=== PATIENT | male | born 1960 | race Asian ===

== ENCOUNTER 2019-03-30 21:30 | Inpatient (IN) | payer MEDICARE, OTHER ==
[~2019-03-30] VITALS: Ht 167.6 cm; Wt 74.5 kg
[2019-03-31] VITALS (20 sets, daily range): BP systolic 131–179; BP diastolic 64–89; PULSE 60–87; RESP 18–22; Ht 167.6 cm; Wt 74.5 kg
[2019-03-31] MEDS ORDERED: ATOR40TA68 PO (00:42)
[2019-03-31] MEDS ORDERED: ASPI-817 PO (00:42)
[2019-03-31] MEDS ORDERED: AMLO-147 PO (00:42)
[2019-03-31] MEDS ORDERED: CHOL400T10 PO (00:42)
[2019-03-31] MEDS ORDERED: INSU100I33 SC ×2 (00:42→00:45)
[2019-03-31] MEDS ORDERED: NEPH PO (00:42)
[2019-03-31] MEDS ORDERED: MULT-896 PO (00:42)
[2019-03-31] MEDS ORDERED: LOSA100T15 PO (00:42)
[2019-03-31] MEDS ORDERED: METO-448 PO (00:42)
[2019-03-31] MEDS ORDERED: INSU100I12 SQ ×2 (00:43→00:50)
--- NOTE | 2019-03-31 00:44 | HP ---
Date/Time of Note Date/Time of Note DATE: 03/31/19 TIME: 00:44 Assessment/Plan VTE Prophylaxis SCD applied (from Nsg): Yes Pharmacological prophylaxis: NA/contraindicated Pharm contraindication: low risk/ambulating Lines/Catheters IV Catheter Type (from Nrsg): Saline Lock Assessment/Plan Hospital Course This is a 58-year-old male being admitted to the telemetry floor for: #1 uremia: BUN and creatinine 149/4.6 respectively. Do not have a previous baseline renal function. Patient also does have metabolic acidosis. All secondary to noncompliance of his end-stage renal disease. Nephrology Dr. Pena has been consulted by the ED for emergent dialysis in the a.m. Potassium at the current time is within normal values. #2 chest pressure: Currently no signs of any volume overload. Will trend cardiac enzymes x3, EKG is nonischemic. Check an echocardiogram. #3 end-stage renal disease: Was previously on dialysis Thursday. Nephrology has been consulted. Resume home renal meds #4 hypertension: Resume amlodipine, metoprolol, PRN hydralazine. We will hold losartan at the current time until seen by nephrology #5 diabetes mellitus: Resume home insulin regimen, insulin sliding scale we will check hemoglobin A1c #6 metabolic acidosis: Likely secondary to underlying end-stage renal disease. Resume renal medications. Further management as per nephrology. #7 normocytic anemia: Likely secondary to anemia of renal disease further management as per nephro #8 DVT GI prophylaxis: SCDs, no GI prophylaxis indicated Further treatment strategy will be implemented as per the clinical course. Result Diagram: 03/30/19 2211 03/30/19 2211 Results 24hrs Laboratory Tests Test 03/30/19 22:10 03/30/19 22:11 Bedside Glucose 196 White Blood Count 6.3 Red Blood Count 3.02 L Hemoglobin 9.3 L Hematocrit 27.6 L Mean Corpuscular Volume 91.4 Mean Corpuscular Hemoglobin 30.8 Mean Corpuscular Hemoglobin Concent 33.7 Red Cell Distribution Width 12.0 Platelet Count 134 L Mean Platelet Volume 10.6 H Immature Granulocytes % 0.300 Neutrophils % 63.2 Lymphocytes % 22.3 Monocytes % 11.0 Eosinophils % 2.9 Basophils % 0.3 Nucleated Red Blood Cells % 0.0 Immature Granulocytes # 0.020 Neutrophils # 4.0 Lymphocytes # 1.4 Monocytes # 0.7 Eosinophils # 0.2 Basophils # 0.0 Nucleated Red Blood Cells # 0.0 Sodium Level 144 Potassium Level 4.5 Chloride Level 106 Carbon Dioxide Level 22 Anion Gap 16 H Blood Urea Nitrogen 149 H Creatinine 12.61 H Est Glomerular Filtrat Rate mL/min 4 L Glucose Level 187 Calcium Level 7.2 L Total Bilirubin 0.3 Direct Bilirubin 0.00 Indirect Bilirubin 0.3 Aspartate Amino Transf (AST/SGOT) 18 Alanine Aminotransferase (ALT/SGPT) 28 Alkaline Phosphatase 59 Troponin I < 0.012 B-Type Natriuretic Peptide 876 H Total Protein 7.4 Albumin 4.5 Globulin 2.90 Albumin/Globulin Ratio 1.55 HPI/ROS Admit Date/Time Admit Date/Time Hx of Present Illness Chief complaint: Sent in by PCP for abnormal labs This is a 58-year-old very pleasant male who presented to the emergency department after going to his PCP and was found to have abnormal labs. Patient reports that he followed up with his primary care doctor and was told to come to the ER immediately due to abnormal lab results. Patient has been dealing with some generalized body aches and tightness. He also reports weakness and decreased appetite over the last week or so. He reports that he has decreased taste sensation. He states that he has not been to dialysis in approximately 1 month. He states that he did not feel well so he did not go. His beef breaker is Dr. Patrick Pena. Patient is still able to urinate. Patient also reports on and off chest pressure during the last 2 weeks. Currently denies any chest pain. Allergies: NKDA Medications: See JAN ROS Const: As per HPI Eyes : No pain discharge or redness or change in visual acuity ENT: No pain, sore throat, congestion, congestion, dysphagia or discharge Respiratory: No shortness of breath, cough, sputum, wheezing, or pleuritic pain Cardiovascular: No chest pain, palpitation, PND, or edema GI : no change in appetite, abdominal pain, nausea, vomiting, diarrhea, constipation, or change in the color his stool Genitourinary: No dysuria, hematuria, flank pain , discharge or CVA tenderness Musculoskeletal: As per HPI Skin: No rash, bruising or hives Neuro: No headache, dizziness, syncope, seizure, focal weakness Endocrine: No polyuria, polydipsia, temperature intolerance Psych: No hallucination, depression, anxiety or suicidal ideation PMH/Family/Social Past Medical History End-stage renal disease on dialysis Thursday, hypertension, insulin-dependent diabetes mellitus Medications Current Medications IV Flush (NS 3 ml) 3 ml PER PROTOCOL IV ; Start 03/31/19 at 01:00; Status UNV Acetaminophen (Tylenol Tab) 650 mg Q6H PRN PO .PAIN 1-3 OR TEMP; Start 03/31/19 at 01:00; Status UNV Docusate Sodium (Colace) 100 mg Q12H PRN PO .CONSTIPATION; Start 03/31/19 at 01:00; Status UNV Bisacodyl (Dulcolax) 5 mg DAILY PRN PO .CONSTIPATION; Start 03/31/19 at 01:00; Status UNV Furosemide (Lasix) 80 mg ONCE ONCE IV ; Start 03/31/19 at 01:00; Stop 03/31/19 at 01:01; Status UNV Coded Allergies: No Known Allergy (Unverified , 03/30/19) Past Surgical History Appendectomy, left AV fistula Family History Significant Family History: no pertinent family hx Social History Alcohol Use: none Smoking Status: Never smoker Drug Use: none Exam/Review of Systems Vital Signs Vitals Vital Signs Date Temp Pulse Resp B/P (MAP) Pulse Ox O2 O2 Flow FiO2 Time Delivery Rate 03/30/19 65 18 163/85 100 Room Air 23:01 (111) 03/30/19 97.2 21:39 Exam Exam General: Patient is a pleasant male currently lying in bed in no acute distress HEENT: Atraumatic, normocephalic. The pupils are equal, round and reactive. Ext raocular motor are intact Neck: Supple with full range of motion. No rigidity or meningismus Chest: Nontender Lungs: Clear to auscultation bilaterally no crackles rales or wheezing Heart: Normal S1-S2, Regular rhythm and rate. No overt murmurs appreciated on auscultation Abdomen: Soft , nontender, nondistended , bowel sounds are present. No guarding no rebound tenderness , No masses or organomegaly. No costovertebral temporal angle mass Extremities: Normal to inspection, no edema no cyanosis Skin: Left upper extremity AV fistula Neurologic: Normal mental status, speech normal, cranial nerves II through XII are intact, motor and sensory are intact, no focal weakness Additional Comments PROCEDURE: XR Chest. CLINICAL INDICATION: Chest pain. TECHNIQUE: Portable AP semi erect views of the chest were obtained, 2 images sent to the PACS for review. COMPARISON: None. FINDINGS: The cardiomediastinal silhouette is within normal limits. The lungs are clear. There is no evidence for pleural effusion, pneumothorax or pulmonary vascular congestion. The osseous structures are intact with no evidence for acute abnormality. Atherosclerotic calcification of the aortic arch is present. Artifact external to the patient on the first image is removed on the second image RPTAT:HJJR IMPRESSION: 1. No evidence for acute intrathoracic pathology. 2. Aortic atherosclerosis is present. Physician Mikaela Date Time Electronically viewed and signed by Physician Mikaela on 03/31/2019 00:10 JR/ CC: GARIMA SHIELDS [id number] EDNA WHATLEY March 31, 2019 00:44
[2019-03-31] MEDS ORDERED: INSU100C SQ (00:48)
[2019-03-31] MEDS ORDERED: FUROSEMIDE 40 MG INJ IV ONE (01:00)
[2019-03-31] MEDS ORDERED: BISACODYL (EC) 5 MG TAB PO PRN (01:00)
[2019-03-31] MEDS ORDERED: NACL 0.9% 3 ML SYG IV SCH (01:00)
[2019-03-31] MEDS ORDERED: DOCUSATE SODIUM 100 MG CAP PO PRN (01:00)
[2019-03-31] MEDS ORDERED: ACETAMINOPHEN 325 MG TAB PO PRN (01:00)
--- NOTE | 2019-03-31 01:14 | ERD ---
ER Documentation Chief Complaint Chief Complaint STOPPED HEMO DIALYSIS 1 MONTH AGO, PCP WANTS STAT LABS HPI This is a very pleasant 58-year-old male comes in after he stopped hemodialysis 1 month ago. Patient states he felt terrible the past week. By terrible, patient states that he feels short of breath and lightheaded. Denies any teri chest pain. Denies any other current issues. ROS All systems reviewed and are negative except as per history of present illness. Medications Home Meds Reported Medications Insulin Lispro (Humalog Kwikpen U-100) 100 Unit/1 Ml Insuln.pen, 45 UNIT SQ AC A, EA 03/31/19 Insulin Glargine,Hum.rec.anlog (Basaglar Kwikpen U-100) 100 Unit/1 Ml Insuln.pen, 15 UNIT SC QHS, EA 03/31/19 Multivit-Min/FA/Lycopen/Lutein (Centrum Silver Men Tablet) 1 Each Tablet, 1 EACH PO DAILY, TAB 03/31/19 Cholecalciferol* (Vitamin D*) 400 Unit Tablet, 400 UNIT PO DAILY, TAB 03/31/19 Aspirin* (Aspirin* EC) 81 Mg Tablet.dr, 81 MG PO DAILY for 90 Days, #90 03/31/19 Losartan Potassium* (Losartan Potassium*) 100 Mg Tablet, 100 MG PO DAILY for 60 Days, #60 03/31/19 Atorvastatin* (Atorvastatin*) 40 Mg Tablet, 40 MG PO QHS for 60 Days, #60 03/31/19 Amlodipine Besylate* (Amlodipine Besylate*) 10 Mg Tablet, 10 MG PO DAILY for 60 Days, #60 03/31/19 Metoprolol Tartrate* (Lopressor*) 25 Mg Tab, 25 MG PO Q12 TK 1 T PO Q 12H 03/31/19 Multivit/Ca Carb/B Cmplx/Fa* (Kae-Alin*) 1 Tab Tab, 1 TAB PO DAILY for 30 Days, #30 03/31/19 Discontinued Reported Medications Insulin Lispro (Humalog) 100 Unit/1 Ml Cartridge, 15 UNIT SQ AC B, EA 03/31/19 Insulin Lispro (Humalog Kwikpen U-100) 100 Unit/1 Ml Insuln.pen, 15 UNIT SQ AC C, EA 03/31/19 Insulin Glargine,Hum.rec.anlog (Basaglar Kwikpen U-100) 100 Unit/1 Ml Insuln .pen, 45 UNIT SC QHS, EA 03/31/19 Allergies Allergies: Coded Allergies: No Known Allergy (Unverified , 03/30/19) PMhx/Soc History of Surgery: No Anesthesia Reaction: No Hx Neurological Disorder: No Hx Respiratory Disorders: No Hx Cardiac Disorders: Yes (ESRD, HD (,,)) Hx Psychiatric Problems: No Hx Alcohol Use: Yes (SOCIALLY) Hx Substance Use: No Hx Tobacco Use: No Smoking Status: Never smoker Physical Exam Vitals Vital Signs Date Temp Pulse Resp B/P (MAP) Pulse Ox O2 O2 Flow FiO2 Time Delivery Rate 03/31/19 69 18 160/89 100 Room Air 00:48 (112) 03/30/19 65 18 163/85 100 Room Air 23:01 (111) 03/30/19 83 18 157/78 100 Room Air 22:41 (104) 03/30/19 97.2 66 18 189/86 99 21:39 (120) Physical Exam Const: No acute distress Head: Atraumatic Eyes: Normal Conjunctiva ENT: Normal External Ears, Nose and Mouth. Neck: Full range of motion. No meningismus. Resp: Clear to auscultation bilaterally Cardio: Regular rate and rhythm, no murmurs Abd: Soft, non tender, non distended. Normal bowel sounds Skin: No petechiae or rashes Back: No midline or flank tenderness Ext: No cyanosis, or edema Neur: Awake and alert Psych: Normal Mood and Affect Result Diagram: 03/30/19 2211 03/30/19 2211 Results 24 hrs Laboratory Tests Test 03/30/19 22:10 03/30/19 22:11 Bedside Glucose 196 mg/dL White Blood Count 6.3 10^3/ul Red Blood Count 3.02 10^6/ul Hemoglobin 9.3 g/dl Hematocrit 27.6 % Mean Corpuscular Volume 91.4 fl Mean Corpuscular Hemoglobin 30.8 pg Mean Corpuscular Hemoglobin Concent 33.7 g/dl Red Cell Distribution Width 12.0 % Platelet Count 134 10^3/UL Mean Platelet Volume 10.6 fl Immature Granulocytes % 0.300 % Neutrophils % 63.2 % Lymphocytes % 22.3 % Monocytes % 11.0 % Eosinophils % 2.9 % Basophils % 0.3 % Nucleated Red Blood Cells % 0.0 /100WBC Immature Granulocytes # 0.020 10^3/ul Neutrophils # 4.0 10^3/ul Lymphocytes # 1.4 10^3/ul Monocytes # 0.7 10^3/ul Eosinophils # 0.2 10^3/ul Basophils # 0.0 10^3/ul Nucleated Red Blood Cells # 0.0 10^3/ul Sodium Level 144 mmol/L Potassium Level 4.5 mmol/L Chloride Level 106 mmol/L Carbon Dioxide Level 22 mmol/L Anion Gap 16 Blood Urea Nitrogen 149 mg/dl Creatinine 12.61 mg/dl Est Glomerular Filtrat Rate mL/min 4 mL/min Glucose Level 187 mg/dl Calcium Level 7.2 mg/dl Total Bilirubin 0.3 mg/dl Direct Bilirubin 0.00 mg/dl Indirect Bilirubin 0.3 mg/dl Aspartate Amino Transf (AST/SGOT) 18 IU/L Alanine Aminotransferase (ALT/SGPT) 28 IU/L Alkaline Phosphatase 59 IU/L Troponin I < 0.012 ng/ml B-Type Natriuretic Peptide 876 PG/ML Total Protein 7.4 g/dl Albumin 4.5 g/dl Globulin 2.90 g/dl Albumin/Globulin Ratio 1.55 Current Medications Medications Dose Sig/Phil Start Time Status Last (Trade) Ordered Route PRN Stop Time Admin Dose Reason Admin IV Flush 3 ml PER 03/31/19 (NS 3 ml) PROTOCOL IV 01:00 650 mg Q6H PRN 03/31/19 Acetaminophen PO .PAIN 1-3 01:00 (Tylenol OR TEMP Tab) Docusate 100 mg Q12H PRN 03/31/19 Sodium PO 01:00 (Colace) .CONSTIPATION Bisacodyl 5 mg DAILY PRN 03/31/19 (Dulcolax) PO 01:00 .CONSTIPATION Furosemide 80 mg ONCE ONCE 03/31/19 DC 03/31/19 (Lasix) IV 01:00 00:54 03/31/19 01:01 Procedures/MDM EKG: Rate/Rhythm: [Normal Sinus Rhythm] QRS, ST, T-waves: [No changes consistent w/ acute ischemia] Impression: [No evidence of ischemia or arrhythmia] Chest X-ray 1V Interpreted by me: Soft Tissue: No acute abn ormalities Bones: No acute abnormalities Mediastinum/Cardiac Silhouette/Lungs: [No acute abnormalities] Medical decision making: This is a 58-year-old male fluid overload secondary to missed hemodialysis. Patient will be admitted to hospitalist. Dr. Pena consulted for nephrology as he knows the patient well. Departure Diagnosis: Primary Impression: Fluid overload Hypervolemia type: unspecified Qualified Codes: E87.70 - Fluid overload, unspecified Condition: Fair GARIMA SHIELDS March 31, 2019 01:14
[2019-03-31] MEDS ORDERED: INSULIN LISPRO 45 UNIT SQ SCH (06:30)
[2019-03-31] MEDS: INSULIN ASPART [NOVOLOG] 3 ML PEN SC SCH ×5 (07:59→23:24)
[2019-03-31] MEDS ORDERED: INSULIN ASPART [NOVOLOG] 3 ML PEN SC SCH (08:00)
--- NOTE | 2019-03-31 08:21 | CONS ---
DATE OF ADMISSION: 03/30/2019 DATE OF CONSULTATION: 03/31/2019 TYPE OF CONSULTATION: Nephrology. REASON FOR CONSULTATION: End-stage renal disease. PHYSICIAN REQUESTING CONSULT: Dr. Whatley. HISTORY OF PRESENT ILLNESS: This is a 58-year-old male with a past medical history of end-stage jolly l disease, access AV fistula. The patient's primary optician manager is Dr. Patrick Pena. The patient 's last hemodialysis was approximately 1 month ago. The patient presents to [facility] with abnormal labs. The patient states that he was seen by primary care physician, had laborato ry data, which showed marked abnormality and was told to come to the emergency room for evaluation. The patient has been dealing with generalized body aches, some chest tightness. He reports decrease in appetite. The patient denies any hemoptysis, hematemesis, or hematochezia. In terms of patient's renal history, the patient is on dialysis, last dialysis as stated above was 1 month ago. The patient reports no exact reasons why he stopped going. PAST MEDICAL HISTORY: History of end-stage renal disease, history of anemia, history of mineral bone disorder, history of diabetes. PAST SURGICAL HISTORY: Status post AV fistula placement. FAMILY HISTORY: No family history of kidney disease. SOCIAL HISTORY: He does not drink, smoke or do drugs. MEDICATIONS: The patient's medications have been reviewed. REVIEW OF SYSTEMS: A 14-point review of systems was conducted. Pertinent positives stated in HPI, o therwise negative. PHYSICAL EXAMINATION: VITAL SIGNS: Blood pressure is 160/82, respirations 19, pulse 69, temperature 98.2. HEENT: Head is normocephalic. NECK: Supple. HEART: Regular rate. LUNGS: Show diminished breath sounds at the base. ABDOMEN: Soft, nontender to palpation without rebound or guarding. EXTREMITIES: Negative for clubbing, cyanosis. Positive edema. DERMATOLOGIC: No rashes. MUSCULOSKELETAL: No joint effusion. NEUROLOGIC: No focal deficits. LABORATORY DATA: Reviewed. IMAGING STUDIES: Reviewed. ASSESSMENT AND PLAN: This is a 58-year-old male who presents with: 1. End-stage renal disease. The patient's last hemodialysis was approximately 1 month ago. The pat ient has access AV fistula. Plan is for daily dialysis for solute clearance and volume removal. The patient will be given mannitol with hemodialysis to help prevent dialysis disequilibrium syndrome. We will monitor closely. 2. Uremia secondary to end-stage renal disease. We will continue daily dialysis. Monitor closely. 3. Anemia. Continue to monitor hemoglobin and hematocrit levels. We will check iron panel. We benjie l give Epogen as needed. 4. Mineral bone disorder. Monitor calcium and phosphorus levels. The patient is hyperphosphatemic. We will resume phosphate binders. 5. Hypernatremia. Encourage free water intake. 6. Chest tightness, pressure. Etiology is unclear. The patient is being ruled out for acute mcintosh ry syndrome. Check serial troponins. Check a 2D echo. 7. Diabetes. Continue current insulin regimen. Thank you, Dr. Whatley, for this interesting consult. It will be a pleasure to follow the patient wi th you throughout the hospital course. Dictated By: GERALD URIBE DO NR/NTS Conf#: [id number] DID#: [id number] CC: EDNA WHATLEY MD;*EndCC*
[2019-03-31] MEDS: CHOLECALCIFEROL 400 UNITS TAB PO SCH (08:40)
[2019-03-31] MEDS: MULTIVIT/CA CARB/B CMPLX/FA TAB PO SCH (08:40)
[2019-03-31] MEDS: MULTIVITAMINS/MINERALS TAB PO SCH (08:40)
[2019-03-31] MEDS: ASPIRIN (EC) 81 MG TAB PO SCH (08:40)
[2019-03-31] MEDS: METOPROLOL 25 MG TAB PO SCH ×2 (08:41→23:06)
[2019-03-31] MEDS: AMLODIPINE 10 MG TAB PO SCH (08:41)
[2019-03-31] MEDS ORDERED: GLUCOSE GEL 15 GRAM TUBE PO PRN ×2 (09:00)
[2019-03-31] MEDS ORDERED: DEXTROSE 50% 50 ML SYRINGE IV PRN ×2 (09:00)
[2019-03-31] MEDS ORDERED: GLUCOSE GEL 15 GRAM TUBE BUCCAL PRN (09:00)
[2019-03-31] MEDS ORDERED: GLUCAGON 1 MG INJ IM PRN (09:00)
[2019-03-31] MEDS ORDERED: INSULIN ASPART [NOVOLOG] 3 ML PEN SC ONE (12:30)
[2019-03-31] MEDS ORDERED: ACCU-CHEK XX ONE (12:30)
--- NOTE | 2019-03-31 15:31 | PN ---
Date/Time of Note Date/Time of Note DATE: 03/31/19 TIME: 15:27 Assessment/Plan VTE Prophylaxis Risk score (from Nsg)>0 risk: 1 SCD applied (from Nsg): Yes Pharmacological prophylaxis: NA/contraindicated Pharm contraindication: low risk/ambulating Lines/Catheters IV Catheter Type (from Nrsg): Saline Lock Urinary Cath still in place: No Assessment/Plan Assessment/Plan 58 yo man with history of diabetes and ESRD on HD presents after missing dialysi s for almost a month. # uremia: -BUN and creatinine 149/4.6 respectively. - Do not have a previous baseline renal function. - All secondary to noncompliance of his end-stage renal disease. - Nephrology Dr. Pena has been consulted by the ED for emergent dialysis # end-stage renal disease: - Was previously on dialysis Thursday. Nephrology has been consulted. Resume home renal meds # chest pressure: - Currently no signs of any volume overload. - Trops negative, EKG is nonischemic. This symptom has now resolved. # hypertension: - Resume amlodipine, metoprolol, PRN hydralazine. We will hold losartan at the current time until seen by nephrology # diabetes mellitus: - Resume home insulin regimen, insulin sliding scale we will check hemoglobin A1c # normocytic anemia: - Likely secondary to anemia of renal disease further management as per nephro # DVT GI prophylaxis: SCDs, no GI prophylaxis indicated Result Diagram: 03/31/19 0505 03/31/19 0505 Subjective 24 Hr Interval Summary Free Text/Dictation No acute overnight events. Patient complains of whole body cramping and occasional cloudy vision which self-resolves. Asking me if he really needs dialysis or if he could get by without it. I told him he needs it. Exam/Review of Systems Exam Vitals Vital Signs Date Temp Pulse Resp B/P (MAP) Pulse Ox O2 O2 Flow FiO2 Time Delivery Rate 03/31/19 97.7 72 22 156/81 100 11:38 (106) 03/31/19 Room Air 01:30 Intake and Output 03/30/19 03/30/19 03/31/19 1515:00 23:00 07:00 IntakeIntake Total 500 ml OutputOutput Total 400 ml BalanceBalance 100 ml Exam General: Patient is a pleasant male currently lying in bed in no acute distress HEENT: Atraumatic, normocephalic. The pupils are equal, round and reactive. Extraocular motor are intact Neck: Supple with full range of motion. No rigidity or meningismus Chest: Nontender Lungs: Clear to auscultation bilaterally no crackles rales or wheezing Heart: Normal S1-S2, Regular rhythm and rate. No overt murmurs appreciated on auscultation Abdomen: Soft , nontender, nondistended , bowel sounds are present. No guarding no rebound tenderness , Extremities: Normal to inspection, no edema no cyanosis Skin: Left upper extremity AV fistula with palpable thrill. Results Results 24hrs Laboratory Tests Test 03/30/19 22:10 03/30/19 22:11 03/31/19 05:01 03/31/19 05:05 Bedside Glucose 196 White Blood Count 6.3 6.3 Red Blood Count 3.02 L 2.97 L Hemoglobin 9.3 L 9.1 L Hematocrit 27.6 L 26.8 L Mean Corpuscular 91.4 90.2 Volume Mean Corpuscular 30.8 30.6 Hemoglobin Mean Corpuscular 33.7 34.0 Hemoglobin Concent Red Cell 12.0 12.0 Distribution Width Platelet Count 134 L 127 L Mean Platelet Volume 10.6 H 10.2 Immature 0.300 0.500 H Granulocytes % Neutrophils % 63.2 62.9 Lymphocytes % 22.3 23.1 Monocytes % 11.0 10.4 Eosinophils % 2.9 2.8 Basophils % 0.3 0.3 Nucleated Red Blood 0.0 0.0 Cells % Immature 0.020 0.030 Granulocytes # Neutrophils # 4.0 4.0 Lymphocytes # 1.4 1.5 Monocytes # 0.7 0.7 Eosinophils # 0.2 0.2 Basophils # 0.0 0.0 Nucleated Red Blood 0.0 0.0 Cells # Sodium Level 144 145 H Potassium Level 4.5 4.5 Chloride Level 106 107 Carbon Dioxide Level 22 22 Anion Gap 16 H 16 H Blood Urea Nitrogen 149 H 139 H Creatinine 12.61 H 12.62 H Est Glomerular 4 L 4 L Filtrat Rate mL/min Glucose Level 187 158 Calcium Level 7.2 L 7.0 L Total Bilirubin 0.3 0.3 Direct Bilirubin 0.00 0.00 Indirect Bilirubin 0.3 0.3 Aspartate Amino 18 17 Transf (AST/SGOT) Alanine 28 30 Aminotransferase (AL T/SGPT) Alkaline Phosphatase 59 60 Troponin I < 0.012 B-Type Natriuretic 876 H Peptide Total Protein 7.4 7.3 Albumin 4.5 4.2 Globulin 2.90 3.10 Albumin/Globulin 1.55 1.35 Ratio Hemoglobin A1c 7.9 H Magnesium Level 2.8 H Triglycerides Level 122 Cholesterol Level 105 LDL Cholesterol, 47 Calculated HDL Cholesterol 34 Cholesterol/HDL 3.0 Ratio Phosphorus Level 7.6 H Test 03/31/19 05:06 03/31/19 07:49 03/31/19 10:09 03/31/19 11:29 Creatine Kinase 926 H 849 H Creatine Kinase 0.4 0.3 Index Creatinine Kinase MB 3.30 H 2.77 H (Mass) Troponin I 0.013 < 0.012 Bedside Glucose 153 52 L Test 03/31/19 11:56 Bedside Glucose 105 Medications Medication Current Medications IV Flush (NS 3 ml) 3 ml PER PROTOCOL IV ; Start 03/31/19 at 01:00 Acetaminophen (Tylenol Tab) 650 mg Q6H PRN PO .PAIN 1-3 OR TEMP; Start 03/31/19 at 01:00 Docusate Sodium (Colace) 100 mg Q12H PRN PO .CONSTIPATION; Start 03/31/19 at 01:00 Bisacodyl (Dulcolax) 5 mg DAILY PRN PO .CONSTIPATION; Start 03/31/19 at 01:00 Amlodipine Besylate (Norvasc) 10 mg DAILY PO Last administered on 03/31/19at 08:41; Admin Dose 10 MG; Start 03/31/19 at 09:00 Aspirin (Halfprin) 81 mg DAILY PO Last administered on 03/31/19at 08:40; Admin Dose 81 MG; Start 03/31/19 at 09:00 Atorvastatin Calcium (Lipitor) 40 mg QHS PO ; Start 03/31/19 at 21:00 Cholecalciferol (Vitamin D) 400 units DAILY PO Last administered on 03/31/19at 08:40; Admin Dose 400 UNITS; Start 03/31/19 at 09:00 Metoprolol Tartrate (Lopressor) 25 mg Q12 PO Last administered on 03/31/19at 08:41; Admin Dose 25 MG; Start 03/31/19 at 09:00 Multivit/Ca Carb/ B Cmplx/FA/Prenat (Kae-Alin) 1 tab DAILY PO Last administered on 03/31/19at 08:40; Admin Dose 1 TAB; Start 03/31/19 at 09:00 Multivitamins/ Minerals (Theragran-M) 1 tab DAILY PO Last administered on 03/31/19at 08:40; Admin Dose 1 TAB; Start 03/31/19 at 09:00 Diagnostic Test (Pha) (Accu-Chek) 1 ea 02 XX ; Start 04/01/19 at 02:00 Insulin Aspart (Novolog Insulin Pen) NOVOLOG *MILD* ALGORITHM WITH MEALS BEDTIME SC Last administered on 03/31/19at 07:59; Admin Dose 1 UNIT; Start 03/31/19 at 08:00 Insulin Glargine (Lantus) 15 units HS SC ; Start 03/31/19 at 21:00 Miscellaneous Information 1 ea NOTE XX ; Start 03/31/19 at 09:00 Glucose (Glutose) 15 gm Q15M PRN PO DECREASED GLUCOSE; Start 03/31/19 at 09:00 Glucose (Glutose) 22.5 gm Q15M PRN PO DECREASED GLUCOSE; Start 03/31/19 at 09:00 Dextrose (D50w Syringe) 25 ml Q15M PRN IV DECREASED GLUCOSE; Start 03/31/19 at 09:00 Dextrose (D50w Syringe) 50 ml Q15M PRN IV DECREASED GLUCOSE; Start 03/31/19 at 09:00 Glucagon (Glucagen) 1 mg Q15M PRN IM DECREASED GLUCOSE; Start 03/31/19 at 09:00 Glucose (Glutose) 15 gm Q15M PRN BUCCAL DECREASED GLUCOSE; Start 03/31/19 at 09:00 HARVEY EID MD March 31, 2019 15:31
--- NOTE | 2019-03-31 18:20 | RADRPT ---
Echocardiogram Report [id number] : 1960 (58y 11m)Study Date: 03/31/2019 7:12:49 AM Gender: MAccession #: [id number] Tech: MindiClaire Gore [facility] Location: 4 Ref.Physician: EDNA WHATLEY Height(Cm): BSA: Weight(Kg): Quality: AdequateOrder Physician: EDNA WHATLEY Account #: Procedures: Echocardiographic Report: Transthoracic echocardiogram with complete 2D, M-Mode, and doppler examination. Indications: Chest Pain. Measurements: 2D/M Mode Doppler Measurement Value Normal Range Measurement Value Normal Range LVIDd 2D 4.6 [ 4.2 - 5.8 ] cm AV Peak Vito 1.5 [ 100.0 - 170.0 ] cm/sec LVIDs 2D 3.0 [ 2.5 - 4.0 ] cm AV Peak PG 9.0 [ 2.0 - 9.0 ] mmHg LVPWd 2D 1.1 [ 0.6 - 1.0 ] cm LVOT Peak Vito 1.0 [ 70.0 - 110.0 ] cm/sec IVSd 2D 1.2 [ 0.6 - 1.0 ] cm LVOT Peak PG 4.0 [ 2.0 - 6.0 ] mmHg AoR Diam 2D 2.8 [ 2.6 - 3.4 ] cm MV E Peak Vito 0.6 [ 60.0 - 130.0 ] cm/sec EDV 2D 95.4 [ 62.0 - 150.0 ] ml MV A Peak Vito 0.9 [ 100.0 - 120.0 ] cm/sec ESV 2D 35.6 [ 21.0 - 61.0 ] ml MV E/A 0.7 [ 0.8 - 1.5 ] ratio EF 2D 62.7 [ 52.0 - 72.0 ] percent MV Decel Time 236 [ 104 - 258 ] msec LA Dimen 2D 3.5 [ 3.0 - 4.0 ] cm Lat E` Vito 0.1 [ 10.0 - 15.0 ] cm/sec Lateral E/E` 9.0 [ 1.0 - 2.0 ] ratio MV E/A 0.7 [ 0.8 - 1.5 ] ratio TR Peak Vito 2.4 [ 100.0 - 280.0 ] cm/sec TR Peak PG 23.0 mmHg RVSP 26.0 [ 10.0 - 36.0 ] mmHg RA Pressure 3.0 mmHg Findings: Left Ventricle: Normal left ventricular systolic function. Normal left ventricular cavity size. Normal left ventricular wall thickness. Ejection fraction is visually estimated at 60 %. Tissue Doppler/Mitral Doppler indices are consistent with impaired relaxation (Stage I diastolic dysfunction). Right Ventricle: Normal right ventricular size. Normal right ventricular systolic function. Left Atrium: There is mild enlargement of left atrium. Right Atrium: The right atrium is normal in size. Mitral Valve: Normal appearance of the mitral valve. Mild mitral valve regurgitation. Aortic Valve: Normal appearance of the aortic valve. No significant aortic stenosis or insufficiency. Tricuspid Valve: Normal appearance and function of the tricuspid valve with trace physiologic regurgitation. Unable to obtain RVSP due to minimal presence of tricuspid regurgitation. Pulmonic Valve: Normal pulmonic valve appearance. Pericardium: Normal pericardium with no significant pericardial effusion. Aorta: Normal aortic root. IVC: Normal size and normal respiratory collapse consistent with normal right atrial pressure. Conclusions: Normal left ventricular systolic function. Normal left ventricular cavity size. Normal left ventricular wall thickness. Ejection fraction is visually estimated at 60 %. Tissue Doppler/Mitral Doppler indices are consistent with impaired relaxation (Stage I diastolic dysfunction). No significant valvular stenosis or regurgitation seen. Unable to obtain RVSP due to minimal presence of tricuspid regurgitation. Normal size and normal respiratory collapse consistent with normal right atrial pressure. Electronically Signed By: Larry Frias 2019-03-31 18:19:41 PDT
[2019-03-31] MEDS: MANNITOL 25% 50 ML IV PRN ×2 (19:29→19:39)
[2019-03-31] MEDS ORDERED: INSULIN GLARGINE [LANtus] 3 ML PEN SC SCH (21:00)
[2019-03-31] MEDS ORDERED: hydrALAzine 20 MG INJ IV PRN (21:00)
[2019-03-31] MEDS: ATORVASTATIN 40 MG TAB PO SCH (23:06)
[2019-03-31] MEDS: INSULIN GLARGINE [LANTus] (100 UNITS/ML) SYG SC SCH (23:24)
[2019-04-01] VITALS (27 sets, daily range): BP systolic 140–177; BP diastolic 72–90; PULSE 62–86; RESP 16–18
[2019-04-01] MEDS: ACCU-CHEK XX SCH (01:59)
[2019-04-01] MEDS: INSULIN ASPART [NOVOLOG] 3 ML PEN SC SCH ×7 (07:37→20:40)
[2019-04-01] MEDS: MULTIVIT/CA CARB/B CMPLX/FA TAB PO SCH (08:16)
[2019-04-01] MEDS: ASPIRIN (EC) 81 MG TAB PO SCH (08:16)
[2019-04-01] MEDS: METOPROLOL 25 MG TAB PO SCH ×2 (08:17→20:33)
[2019-04-01] MEDS: AMLODIPINE 10 MG TAB PO SCH (08:17)
[2019-04-01] MEDS: CHOLECALCIFEROL 400 UNITS TAB PO SCH (08:17)
[2019-04-01] MEDS: MULTIVITAMINS/MINERALS TAB PO SCH (08:17)
--- NOTE | 2019-04-01 08:58 | PN ---
DATE: 04/01/2019 SUBJECTIVE: The patient is stable, no events overnight. No fevers, chills, nausea or vomiting. OBJECTIVE: VITAL SIGNS: Blood pressure is 160/82, respirations 18, pulse 71, temperature 98.1. HEENT: Head is normocephalic. NECK: Supple. HEART: Regular rate. LUNGS: Show diminished breath sounds at the base. ABDOMEN: Soft, nontender to palpation without rebound or guarding. EXTREMITIES: Negative for clubbing, cyanosis, no edema. DERMATOLOGIC: No rashes. MUSCULOSKELETAL: No joint effusion. NEUROLOGIC: No change in exam. MEDICATIONS: Reviewed. LABORATORY DATA: Reviewed. ASSESSMENT AND PLAN: 1. End-stage renal disease. The patient had hemodialysis yesterday, tolerated well. Plan is for di alysis again today and tomorrow for solute clearance and volume removal. Monitor for any signs of di alysis dysequilibrium syndrome. 2. Uremia. Continue hemodialysis. 3. Anemia. Continue to monitor hemoglobin and hematocrit levels. We will give Epogen as needed. 4. Mineral bone disorder, monitor calcium and phosphorus levels. Resume phosphate binders. 5. Hypernatremia, improved. 6. Chest tightness, pressure. Etiology may be secondary to volume overload, hypertensive urgency. Continue to monitor. Follow up serial troponins. 7. Diabetes. Continue current insulin regimen. Dictated By: GERALD URIBE DO NR/NTS Conf#: [id number] DID#: [id number] CC: HARVEY EID MD; EDNA WHATLEY MD;*EndCC*
--- NOTE | 2019-04-01 14:31 | RADRPT ---
Vent Rate: 65 bpm RR Interval: 0 msec MO Interval: 174 msec QRS Duration: 94 msec QT Interval: 454 msec QTC Interval: 472 msec P-R-T [place]: 48 - -27 - 48 degrees Normal sinus rhythm Minimal voltage criteria for LVH, may be normal variant Borderline ECG Electronically Signed By: [facility]
--- NOTE | 2019-04-01 15:52 | PN ---
Date/Time of Note Date/Time of Note DATE: 04/01/19 TIME: 15:51 Assessment/Plan VTE Prophylaxis Risk score (from Nsg)>0 risk: 1 SCD applied (from Nsg): Yes Pharmacological prophylaxis: NA/contraindicated Pharm contraindication: low risk/ambulating Lines/Catheters IV Catheter Type (from Nrsg): Saline Lock Urinary Cath still in place: No Assessment/Plan Assessment/Plan 58 yo man with history of diabetes and ESRD on HD presents after missing dialysi s for almost a month. # uremia: #ESRD -BUN and creatinine 149/4.6 respectively on admission. - Dialysis per nephrology. Dr. Fletcher following. # chest pressure: - Currently no signs of any volume overload. - Trops negative, EKG is nonischemic. This symptom has now resolved. # hypertension: - Resume amlodipine, metoprolol, PRN hydralazine. We will hold losartan at the current time until seen by nephrology # diabetes mellitus: - Resume home insulin regimen, insulin sliding scale we will check hemoglobin A1c # normocytic anemia: - Likely secondary to anemia of renal disease further management as per nephro # DVT GI prophylaxis: SCDs, no GI prophylaxis indicated Dispo: Plan for dialysis tomorrow. Case management arranging outpatient dialysis. Once it is set up again, patient can be discharged. Result Diagram: 04/01/1951504/01/19515 Subjective 24 Hr Interval Summary Free Text/Dictation No acute overnight events. Patient doing well. Got dialysis yesterday and today. He reports muscle cramps have resolved. Exam/Review of Systems Exam Vitals Vital Signs Date Temp Pulse Resp B/P (MAP) Pulse Ox O2 O2 Flow FiO2 Time Delivery Rate 04/01/19 98.0 80 18 155/90 100 Room Air 15:45 (111) 04/01/19 30 04:56 Intake and Output 03/31/19 03/31/19 04/01/19 1414:59 22:59 06:59 IntakeIntake Total 860 ml 750 ml OutputOutput Total 500 ml BalanceBalance 360 ml 750 ml Exam General: Patient is a pleasant male currently lying in bed in no acute distress HEENT: Atraumatic, normocephalic. The pupils are equal, round and reactive. Extraocular motor are intact Neck: Supple with full range of motion. No rigidity or meningismus Chest: Nontender Lungs: Clear to auscultation bilaterally no crackles rales or wheezing Heart: Normal S1-S2, Regular rhythm and rate. No overt murmurs appreciated on auscultation Abdomen: Soft , nontender, nondistended , bowel sounds are present. No guarding no rebound tenderness , Extremities: Normal to inspection, no edema no cyanosis Skin: Left upper extremity AV fistula with palpable thrill. Results Results 24hrs Laboratory Tests Test 03/31/19 17:14 03/31/19 23:04 04/01/19 01:57 04/01/19 05:16 Bedside Glucose 137 193 196 White Blood Count 6.8 Red Blood Count 3.14 L Hemoglobin 9.7 L Hematocrit 28.3 L Mean Corpuscular 90.1 Volume Mean Corpuscular 30.9 Hemoglobin Mean Corpuscular 34.3 Hemoglobin Concent Red Cell 11.9 Distribution Width Platelet Count 140 Mean Platelet Volume 10.0 Immature 0.300 Granulocytes % Neutrophils % 65.5 Lymphocytes % 18.6 Monocytes % 12.6 H Eosinophils % 2.6 Basophils % 0.4 Nucleated Red Blood 0.0 Cells % Immature 0.020 Granulocytes # Neutrophils # 4.5 Lymphocytes # 1.3 Monocytes # 0.9 Eosinophils # 0.2 Basophils # 0.0 Nucleated Red Blood 0.0 Cells # Sodium Level 143 Potassium Level 3.8 Chloride Level 103 Carbon Dioxide Level 29 Anion Gap 11 Blood Urea Nitrogen 99 #H Creatinine 9.96 #H Est Glomerular 5 L Filtrat Rate mL/min Glucose Level 118 # Calcium Level 7.8 L Phosphorus Level 6.1 H Total Bilirubin 0.4 Direct Bilirubin 0.00 Indirect Bilirubin 0.4 Aspartate Amino 19 Transf (AST/SGOT) Alanine 29 Aminotransferase (AL T/SGPT) Alkaline Phosphatase 53 Total Protein 6.9 Albumin 4.1 Globulin 2.80 Albumin/Globulin 1.46 Ratio Thyroid Stimulating 1.640 Hormone (TSH) Test 04/01/19 07:31 04/01/19 11:40 Bedside Glucose 222 H 223 H Medications Medication Current Medications IV Flush (NS 3 ml) 3 ml PER PROTOCOL IV ; Start 03/31/19 at 01:00 Acetaminophen (Tylenol Tab) 650 mg Q6H PRN PO .PAIN 1-3 OR TEMP; Start 03/31/19 at 01:00 Docusate Sodium (Colace) 100 mg Q12H PRN PO .CONSTIPATION; Start 03/31/19 at 01:00 Bisacodyl (Dulcolax) 5 mg DAILY PRN PO .CONSTIPATION; Start 03/31/19 at 01:00 Amlodipine Besylate (Norvasc) 10 mg DAILY PO Last administered on 03/31/19 08:41; Admin Dose 10 MG; Start 03/31/19 at 09:00 Aspirin (Halfprin) 81 mg DAILY PO Last administered on 04/01/19 08:16; Admin Dose 81 MG; Start 03/31/19 at 09:00 Atorvastatin Calcium (Lipitor) 40 mg QHS PO Last administered on 03/31/19 23:06; Admin Dose 40 MG; Start 03/31/19 at 21:00 Cholecalciferol (Vitamin D) 400 units DAILY PO Last administered on 04/01/19 08:17; Admin Dose 400 UNITS; Start 03/31/19 at 09:00 Metoprolol Tartrate (Lopressor) 25 mg Q12 PO Last administered on 03/31/19 23:06; Admin Dose 25 MG; Start 03/31/19 at 09:00 Multivit/Ca Carb/ B Cmplx/FA/Prenat (Kae-Alin) 1 tab DAILY PO Last administered on 04/01/19 08:16; Admin Dose 1 TAB; Start 03/31/19 at 09:00 Multivitamins/ Minerals (Theragran-M) 1 tab DAILY PO Last administered on 04/01/19 08:17; Admin Dose 1 TAB; Start 03/31/19 at 09:00 Diagnostic Test (Pha) (Accu-Chek) 1 ea 02 XX Last administered on 04/01/19at 01:59; Admin Dose 1 EA; Start 04/01/19 at 02:00 Insulin Aspart (Novolog Insulin Pen) NOVOLOG *MILD* ALGORITHM WITH MEALS BEDTIME SC Last administered on 04/01/19at 11:55; Admin Dose 3 UNIT; Start 03/31/19 at 08:00 Insulin Glargine (Lantus) 15 units HS SC Last administered on 03/31/19at 23:24; Admin Dose 15 UNITS; Start 03/31/19 at 21:00 Miscellaneous Information 1 ea NOTE XX ; Start 03/31/19 at 09:00 Glucose (Glutose) 15 gm Q15M PRN PO DECREASED GLUCOSE; Start 03/31/19 at 09:00 Glucose (Glutose) 22.5 gm Q15M PRN PO DECREASED GLUCOSE; Start 03/31/19 at 09:00 Dextrose (D50w Syringe) 25 ml Q15M PRN IV DECREASED GLUCOSE; Start 03/31/19 at 09:00 Dextrose (D50w Syringe) 50 ml Q15M PRN IV DECREASED GLUCOSE; Start 03/31/19 at 09:00 Glucagon (Glucagen) 1 mg Q15M PRN IM DECREASED GLUCOSE; Start 03/31/19 at 09:00 Glucose (Glutose) 15 gm Q15M PRN BUCCAL DECREASED GLUCOSE; Start 03/31/19 at 09:00 Insulin Aspart (Novolog Insulin Pen) 15 unit WITH MEALS SC Last administered o n 04/01/19at 11:55; Admin Dose 15 UNIT; Start 03/31/19 at 18:00 Mannitol 50 ml @ 50 mls/5 min WITH DIALYSIS PRN IV DISEQUILIBRIUM SYNDROME PPX Last administered on 03/31/19at 19:39; Admin Dose 50 MLS/5 MIN; Start 03/31/19 at 18:00 Hydralazine HCl (Apresoline) 10 mg Q4H PRN IV ELEVATED BLOOD PRESSURE Last administered on 03/31/19at 23:07; Admin Dose 10 MG; Start 03/31/19 at 21:00 HARVEY EID MD April 01, 2019 15:52
[2019-04-01] MEDS: ATORVASTATIN 40 MG TAB PO SCH (20:33)
[2019-04-01] MEDS: INSULIN GLARGINE [LANTus] (100 UNITS/ML) SYG SC SCH (20:40)
[2019-04-01] MEDS ORDERED: morphine 2 MG INJ IV PRN (22:00)
[2019-04-02] VITALS (13 sets, daily range): BP systolic 133–161; BP diastolic 64–84; PULSE 63–87; RESP 16–20
[2019-04-02] MEDS: ACCU-CHEK XX SCH (02:13)
[2019-04-02] MEDS: AMLODIPINE 10 MG TAB PO SCH (08:13)
[2019-04-02] MEDS: MULTIVITAMINS/MINERALS TAB PO SCH (08:13)
[2019-04-02] MEDS: ASPIRIN (EC) 81 MG TAB PO SCH (08:13)
[2019-04-02] MEDS: MULTIVIT/CA CARB/B CMPLX/FA TAB PO SCH (08:13)
[2019-04-02] MEDS: CHOLECALCIFEROL 400 UNITS TAB PO SCH (08:13)
[2019-04-02] MEDS: METOPROLOL 25 MG TAB PO SCH ×2 (08:14→20:26)
[2019-04-02] MEDS: INSULIN ASPART [NOVOLOG] 3 ML PEN SC SCH ×7 (08:16→20:47)
--- NOTE | 2019-04-02 10:01 | PN ---
DATE: 04/02/2019 SUBJECTIVE: The patient is stable, had hemodialysis yesterday, tolerated well. Patient continues to have a metallic taste in his mouth. No other events noted. OBJECTIVE: VITAL SIGNS: Blood pressure is 155/60, pulse 72, respirations 20, temperature 98.6. HEENT: Head is normocephalic. NECK: Supple. HEART: Regular rate. LUNGS: Show diminished breath sounds at the base. ABDOMEN: Soft, nontender to palpation without rebound or guarding. EXTREMITIES: Negative for clubbing, cyanosis, no edema. DERMATOLOGIC: No rashes. MUSCULOSKELETAL: No joint effusion. NEUROLOGIC: No change in exam. MEDICATIONS: Have been reviewed. LABORATORY DATA: Has been reviewed. ASSESSMENT AND PLAN: 1. End-stage renal disease. The patient tolerated dialysis well yesterday. Plan for dialysis again today. We will dialyze for 3 hours 3k bath, calcium 2.5. 2. Uremia. Continue dialysis. 3. Anemia. Continue to monitor hemoglobin and hematocrit levels. Continue Epogen. 4. Mineral bone disorder, monitor calcium and phosphorus levels. Resume phosphate binders. 5. Hypernatremia, improved. 6. Chest tightness, pressure improved. Continue to monitor. 7. Diabetes. Continue current insulin regimen. Dictated By: GERALD URIBE DO NR/NTS Conf#: [id number] DID#: [id number] CC: EDNA WHATLEY MD;*EndCC*
[2019-04-02] MEDS: SEVELAMER CARBONATE 800 MG TABLET PO SCH ×2 (12:13→17:20)
--- NOTE | 2019-04-02 14:07 | PN ---
Date/Time of Note Date/Time of Note DATE: 04/02/19 TIME: 14:06 Assessment/Plan VTE Prophylaxis Risk score (from Ns)>0 risk: 1 SCD applied (from Nsg): Yes Pharmacological prophylaxis: NA/contraindicated Pharm contraindication: low risk/ambulating Lines/Catheters IV Catheter Type (from Nrs): Saline Lock Urinary Cath still in place: No Assessment/Plan Hospital Course 58 yo man with history of diabetes and ESRD on HD presents after missing dialysi s for almost a month. # uremia: #ESRD -BUN and creatinine 149/4.6 respectively on admission. - Dialysis per nephrology. Dr. Fletcher following. # chest pressure: - Currently no signs of any volume overload. - Trops negative, EKG is nonischemic. This symptom has now resolved. # hypertension: - Resume amlodipine, metoprolol, PRN hydralazine. We will hold losartan at the current time until seen by nephrology # diabetes mellitus: - Resume home insulin regimen, insulin sliding scale we will check hemoglobin A1c # normocytic anemia: - Likely secondary to anemia of renal disease further management as per nephro #Oral thrush -Start nystatin swish and swallow # DVT GI prophylaxis: SCDs, no GI prophylaxis indicated Dispo: Plan for dialysis tomorrow. Case management arranging outpatient dialysis. Once it is set up again, patient can be discharged. Result Diagram: 04/02/19 0533 04/02/19 0533 Results 24hrs Laboratory Tests Test 04/01/19 17:09 04/01/19 18:12 04/01/19 20:31 04/02/19 02:07 Bedside Glucose 202 169 266 H 173 Test 04/02/19 05:33 04/02/19 07:34 04/02/19 11:45 White Blood Count 6.4 Red Blood Count 3.15 L Hemoglobin 9.9 L Hematocrit 28.9 L Mean Corpuscular 91.7 Volume Mean Corpuscular 31.4 Hemoglobin Mean Corpuscular 34.3 Hemoglobin Concent Red Cell 11.9 Distribution Width Platelet Count 131 L Mean Platelet Volume 10.5 H Immature 0.300 Granulocytes % Neutrophils % 64.1 Lymphocytes % 19.0 Monocytes % 13.1 H Eosinophils % 3.0 Basophils % 0.5 Nucleated Red Blood 0.0 Cells % Immature 0.020 Granulocytes # Neutrophils # 4.1 Lymphocytes # 1.2 Monocytes # 0.8 Eosinophils # 0.2 Basophils # 0.0 Nucleated Red Blood 0.0 Cells # Sodium Level 142 Potassium Level 4.4 Chloride Level 101 Carbon Dioxide Level 28 Anion Gap 13 Blood Urea Nitrogen 70 H Creatinine 7.90 #H Est Glomerular 7 L Filtrat Rate mL/min Glucose Level 263 #H Calcium Level 7.5 L Phosphorus Level 7.1 H Total Bilirubin 0.6 Direct Bilirubin 0.00 Indirect Bilirubin 0.6 Aspartate Amino 20 Transf (AST/SGOT) Alanine 30 Aminotransferase (AL T/SGPT) Alkaline Phosphatase 54 Total Protein 7.0 Albumin 3.9 Globulin 3.10 Albumin/Globulin 1.25 Ratio Bedside Glucose 207 194 Subjective 24 Hr Interval Summary ENT: sore throat Exam/Review of Systems Exam Vitals Vital Signs Date Temp Pulse Resp B/P (MAP) Pulse Ox O2 O2 Flow FiO2 Time Delivery Rate 04/02/19 78 12:01 04/02/19 98.3 20 157/84 100 12:01 (108) 04/02/19 Room Air 12:00 04/02/19 30 01:30 Intake and Output 04/01/19 04/01/19 04/02/19 1515:00 23:00 07:00 IntakeIntake Total 560 ml 500 ml OutputOutput Total 200 ml 1500 ml BalanceBalance -200 ml -940 ml 500 ml Constitutional: alert, oriented Respiratory: clear to auscultation Cardiovascular: regular rate and rhythm Gastrointestinal: soft; No distended Musculoskeletal: nl extremities to inspection Results Results 24hrs Laboratory Tests Test 04/01/19 17:09 04/01/19 18:12 04/01/19 20:31 04/02/19 02:07 Bedside Glucose 202 169 266 H 173 Test 04/02/19 05:33 04/02/19 07:34 04/02/19 11:45 White Blood Count 6.4 Red Blood Count 3.15 L Hemoglobin 9.9 L Hematocrit 28.9 L Mean Corpuscular 91.7 Volume Mean Corpuscular 31.4 Hemoglobin Mean Corpuscular 34.3 Hemoglobin Concent Red Cell 11.9 Distribution Width Platelet Count 131 L Mean Platelet Volume 10.5 H Immature 0.300 Granulocytes % Neutrophils % 64.1 Lymphocytes % 19.0 Monocytes % 13.1 H Eosinophils % 3.0 Basophils % 0.5 Nucleated Red Blood 0.0 Cells % Immature 0.020 Granulocytes # Neutrophils # 4.1 Lymphocytes # 1.2 Monocytes # 0.8 Eosinophils # 0.2 Basophils # 0.0 Nucleated Red Blood 0.0 Cells # Sodium Level 142 Potassium Level 4.4 Chloride Level 101 Carbon Dioxide Level 28 Anion Gap 13 Blood Urea Nitrogen 70 H Creatinine 7.90 #H Est Glomerular 7 L Filtrat Rate mL/min Glucose Level 263 #H Calcium Level 7.5 L Phosphorus Level 7.1 H Total Bilirubin 0.6 Direct Bilirubin 0.00 Indirect Bilirubin 0.6 Aspartate Amino 20 Transf (AST/SGOT) Alanine 30 Aminotransferase (AL T/SGPT) Alkaline Phosphatase 54 Total Protein 7.0 Albumin 3.9 Globulin 3.10 Albumin/Globulin 1.25 Ratio Bedside Glucose 207 194 Medications Medication Current Medications IV Flush (NS 3 ml) 3 ml PER PROTOCOL IV ; Start 03/31/19 at 01:00 Acetaminophen (Tylenol Tab) 650 mg Q6H PRN PO .PAIN 1-3 OR TEMP; Start 03/31/19 at 01:00 Docusate Sodium (Colace) 100 mg Q12H PRN PO .CONSTIPATION; Start 03/31/19 at 01:00 Bisacodyl (Dulcolax) 5 mg DAILY PRN PO .CONSTIPATION; Start 03/31/19 at 01:00 Amlodipine Besylate (Norvasc) 10 mg DAILY PO Last administered on 04/02/19 08:13; Admin Dose 10 MG; Start 03/31/19 at 09:00 Aspirin (Halfprin) 81 mg DAILY PO Last administered on 04/02/19 08:13; Admin Dose 81 MG; Start 03/31/19 at 09:00 Atorvastatin Calcium (Lipitor) 40 mg QHS PO Last administered on 04/01/19at 20:33; Admin Dose 40 MG; Start 03/31/19 at 21:00 Cholecalciferol (Vitamin D) 400 units DAILY PO Last administered on 04/02/19 08:13; Admin Dose 400 UNITS; Start 03/31/19 at 09:00 Metoprolol Tartrate (Lopressor) 25 mg Q12 PO Last administered on 04/02/19at 08:14; Admin Dose 25 MG; Start 03/31/19 at 09:00 Multivit/Ca Carb/ B Cmplx/FA/Prenat (Kae-Alin) 1 tab DAILY PO Last administered on 04/02/19 08:13; Admin Dose 1 TAB; Start 03/31/19 at 09:00 Multivitamins/ Minerals (Theragran-M) 1 tab DAILY PO Last administered on 04/02/19at 08:13; Admin Dose 1 TAB; Start 03/31/19 at 09:00 Diagnostic Test (Pha) (Accu-Chek) 1 ea 02 XX Last administered on 04/02/19at 02:13; Admin Dose 1 EA; Start 04/01/19 at 02:00 Insulin Aspart (Novolog Insulin Pen) NOVOLOG *MILD* ALGORITHM WITH MEALS BEDTIME SC Last administered on 04/02/19 12:20; Admin Dose 2 UNIT; Start 03/31/19 at 08:00 Insulin Glargine (Lantus) 15 units HS SC Last administered on 04/01/19at 20:40; Admin Dose 15 UNITS; Start 03/31/19 at 21:00 Miscellaneous Information 1 ea NOTE XX ; Start 03/31/19 at 09:00 Glucose (Glutose) 15 gm Q15M PRN PO DECREASED GLUCOSE; Start 03/31/19 at 09:00 Glucose (Glutose) 22.5 gm Q15M PRN PO DECREASED GLUCOSE; Start 03/31/19 at 09:00 Dextrose (D50w Syringe) 25 ml Q15M PRN IV DECREASED GLUCOSE; Start 03/31/19 at 09:00 Dextrose (D50w Syringe) 50 ml Q15M PRN IV DECREASED GLUCOSE; Start 03/31/19 at 09:00 Glucagon (Glucagen) 1 mg Q15M PRN IM DECREASED GLUCOSE; Start 03/31/19 at 09:00 Glucose (Glutose) 15 gm Q15M PRN BUCCAL DECREASED GLUCOSE; Start 03/31/19 at 09:00 Insulin Aspart (Novolog Insulin Pen) 15 unit WITH MEALS SC Last administered on 04/02/19at 12:19; Admin Dose 15 UNIT; Start 03/31/19 at 18:00 Mannitol 50 ml @ 50 mls/5 min WITH DIALYSIS PRN IV DISEQUILIBRIUM SYNDROME PPX Last administered on 03/31/19at 19:39; Admin Dose 50 MLS/5 MIN; Start 03/31/19 at 18:00 Hydralazine HCl (Apresoline) 10 mg Q4H PRN IV ELEVATED BLOOD PRESSURE Last admi nistered on 03/31/19at 23:07; Admin Dose 10 MG; Start 03/31/19 at 21:00 Morphine Sulfate (morphine) 0.5 mg Q4H PRN IV SEVERE PAIN LEVEL 7-10 Last administered on 04/01/19at 22:04; Admin Dose 0.5 MG; Start 04/01/19 at 22:00 Epoetin Constantine-epbx (Retacrit (Esrd)) 10,000 unit TuThSa@1700 SC ; Start 04/02/19 at 17:00 Sevelamer Carbonate (Renvela) 800 mg WITH MEALS PO Last administered on 04/02/19at 12:13; Admin Dose 800 MG; Start 04/02/19 at 12:00 DONNA ROY April 02, 2019 14:07
[2019-04-02] MEDS: NYSTATIN SUSP 5 ML CUP PO SCH ×2 (17:20→20:26)
[2019-04-02] MEDS: EPOETIN ALFA-EPBX (ESRD) 10,000 UNIT/ML VIAL SC SCH (17:21)
[2019-04-02] MEDS: ATORVASTATIN 40 MG TAB PO SCH (20:26)
[2019-04-02] MEDS ORDERED: INSULIN ASPART [NOVOLOG] 3 ML PEN SC ONE (20:40)
[2019-04-02] MEDS: INSULIN GLARGINE [LANTus] (100 UNITS/ML) SYG SC SCH (20:54)
[2019-04-03] VITALS (20 sets, daily range): BP systolic 113–164; BP diastolic 63–86; PULSE 68–86; RESP 14–18
[2019-04-03] MEDS: ACCU-CHEK XX SCH (02:00)
[2019-04-03] MEDS: INSULIN ASPART [NOVOLOG] 3 ML PEN SC SCH ×7 (07:50→20:20)
[2019-04-03] MEDS: NYSTATIN SUSP 5 ML CUP PO SCH ×4 (08:39→20:15)
[2019-04-03] MEDS: MULTIVITAMINS/MINERALS TAB PO SCH (08:39)
[2019-04-03] MEDS: SEVELAMER CARBONATE 800 MG TABLET PO SCH ×3 (08:39→17:41)
[2019-04-03] MEDS: MULTIVIT/CA CARB/B CMPLX/FA TAB PO SCH (08:40)
[2019-04-03] MEDS: CHOLECALCIFEROL 400 UNITS TAB PO SCH (08:40)
[2019-04-03] MEDS: ASPIRIN (EC) 81 MG TAB PO SCH (08:40)
[2019-04-03] MEDS: METOPROLOL 25 MG TAB PO SCH ×2 (08:46→20:16)
[2019-04-03] MEDS: AMLODIPINE 10 MG TAB PO SCH (08:46)
--- NOTE | 2019-04-03 12:12 | PN ---
Date/Time of Note Date/Time of Note DATE: 04/03/19 TIME: 12:11 Assessment/Plan VTE Prophylaxis Risk score (from Ns)>0 risk: 1 SCD applied (from Nsg): Yes Pharmacological prophylaxis: NA/contraindicated Pharm contraindication: low risk/ambulating Lines/Catheters IV Catheter Type (from Nrs): Saline Lock Urinary Cath still in place: No Assessment/Plan Hospital Course 58 yo man with history of diabetes and ESRD on HD presents after missing dialysi s for almost a month. # uremia: #ESRD -BUN and creatinine 149/4.6 respectively on admission. - Dialysis per nephrology. Dr. Fletcher following. # chest pressure: - Currently no signs of any volume overload. - Trops negative, EKG is nonischemic. This symptom has now resolved. # hypertension: - Resume amlodipine, metoprolol, PRN hydralazine. We will hold losartan at the current time until seen by nephrology # diabetes mellitus: - Resume home insulin regimen, insulin sliding scale we will check hemoglobin A1c # normocytic anemia: - Likely secondary to anemia of renal disease further management as per nephro #Oral thrush -Started nystatin swish and swallow # DVT GI prophylaxis: SCDs, no GI prophylaxis indicated Dispo: Case management arranging outpatient dialysis. Once it is set up again, patient can be discharged. Result Diagram: 04/03/19 0435 04/03/19 0435 Results 24hrs Laboratory Tests Test 04/02/19 17:16 04/02/19 20:25 04/03/19 02:34 04/03/19 04:35 Bedside Glucose 350 H 319 H 86 White Blood Count 7.6 Red Blood Count 3.34 L Hemoglobin 10.2 L Hematocrit 30.4 L Mean Corpuscular 91.0 Volume Mean Corpuscular 30.5 Hemoglobin Mean Corpuscular 33.6 Hemoglobin Concent Red Cell 11.8 Distribution Width Platelet Count 158 # Mean Platelet Volume 10.3 Immature 0.400 Granulocytes % Neutrophils % 66.2 Lymphocytes % 19.6 Monocytes % 10.4 Eosinophils % 3.0 Basophils % 0.4 Nucleated Red Blood 0.0 Cells % Immature 0.030 Granulocytes # Neutrophils # 5.0 Lymphocytes # 1.5 Monocytes # 0.8 Eosinophils # 0.2 Basophils # 0.0 Nucleated Red Blood 0.0 Cells # Sodium Level 139 Potassium Level 4.0 Chloride Level 100 Carbon Dioxide Level 26 Anion Gap 13 Blood Urea Nitrogen 84 H Creatinine 9.63 H Est Glomerular 6 L Filtrat Rate mL/min Glucose Level 200 Calcium Level 7.7 L Phosphorus Level 7.4 H Total Bilirubin 0.6 Direct Bilirubin 0.00 Indirect Bilirubin 0.6 Aspartate Amino 21 Transf (AST/SGOT) Alanine 28 Aminotransferase (AL T/SGPT) Alkaline Phosphatase 54 Total Protein 7.2 Albumin 4.3 Globulin 2.90 Albumin/Globulin 1.48 Ratio Test 04/03/19 08:39 Bedside Glucose 139 Subjective 24 Hr Interval Summary Constitutional: no complaints Exam/Review of Systems Exam Vitals Vital Signs Date Temp Pulse Resp B/P (MAP) Pulse Ox O2 O2 Flow FiO2 Time Delivery Rate 04/03/19 78 11:40 04/03/19 16 151/80 100 Room Air 10:10 (103) 04/03/19 98.1 07:41 04/03/19 21 02:48 Intake and Output 04/02/19 04/02/19 04/03/19 1515:00 23:00 07:00 IntakeIntake Total 1000 ml 940 ml BalanceBalance 1000 ml 940 ml Constitutional: alert, oriented Respiratory: clear to auscultation Cardiovascular: regular rate and rhythm Gastrointestinal: soft; No distended Musculoskeletal: nl extremities to inspection Results Results 24hrs Laboratory Tests Test 04/02/19 17:16 04/02/19 20:25 04/03/19 02:34 04/03/19 04:35 Bedside Glucose 350 H 319 H 86 White Blood Count 7.6 Red Blood Count 3.34 L Hemoglobin 10.2 L Hematocrit 30.4 L Mean Corpuscular 91.0 Volume Mean Corpuscular 30.5 Hemoglobin Mean Corpuscular 33.6 Hemoglobin Concent Red Cell 11.8 Distribution Width Platelet Count 158 # Mean Platelet Volume 10.3 Immature 0.400 Granulocytes % Neutrophils % 66.2 Lymphocytes % 19.6 Monocytes % 10.4 Eosinophils % 3.0 Basophils % 0.4 Nucleated Red Blood 0.0 Cells % Immature 0.030 Granulocytes # Neutrophils # 5.0 Lymphocytes # 1.5 Monocytes # 0.8 Eosinophils # 0.2 Basophils # 0.0 Nucleated Red Blood 0.0 Cells # Sodium Level 139 Potassium Level 4.0 Chloride Level 100 Carbon Dioxide Level 26 Anion Gap 13 Blood Urea Nitrogen 84 H Creatinine 9.63 H Est Glomerular 6 L Filtrat Rate mL/min Glucose Level 200 Calcium Level 7.7 L Phosphorus Level 7.4 H Total Bilirubin 0.6 Direct Bilirubin 0.00 Indirect Bilirubin 0.6 Aspartate Amino 21 Transf (AST/SGOT) Alanine 28 Aminotransferase (AL T/SGPT) Alkaline Phosphatase 54 Total Protein 7.2 Albumin 4.3 Globulin 2.90 Albumin/Globulin 1.48 Ratio Test 04/03/19 08:39 Bedside Glucose 139 Medications Medication Current Medications IV Flush (NS 3 ml) 3 ml PER PROTOCOL IV ; Start 03/31/19 at 01:00 Acetaminophen (Tylenol Tab) 650 mg Q6H PRN PO .PAIN 1-3 OR TEMP; Start 03/31/19 at 01:00 Docusate Sodium (Colace) 100 mg Q12H PRN PO .CONSTIPATION; Start 03/31/19 at 01:00 Bisacodyl (Dulcolax) 5 mg DAILY PRN PO .CONSTIPATION; Start 03/31/19 at 01:00 Amlodipine Besylate (Norvasc) 10 mg DAILY PO Last administered on 04/02/19 08:13; Admin Dose 10 MG; Start 03/31/19 at 09:00 Aspirin (Halfprin) 81 mg DAILY PO Last administered on 04/03/19 08:40; Admin Dose 81 MG; Start 03/31/19 at 09:00 Atorvastatin Calcium (Lipitor) 40 mg QHS PO Last administered on 04/02/19 20:26; Admin Dose 40 MG; Start 03/31/19 at 21:00 Cholecalciferol (Vitamin D) 400 units DAILY PO Last administered on 04/03/19 08:40; Admin Dose 400 UNITS; Start 03/31/19 at 09:00 Metoprolol Tartrate (Lopressor) 25 mg Q12 PO Last administered on 04/02/19 20:26; Admin Dose 25 MG; Start 03/31/19 at 09:00 Multivit/Ca Carb/ B Cmplx/FA/Prenat (Kae-Alin) 1 tab DAILY PO Last admin istered on 04/03/19 08:40; Admin Dose 1 TAB; Start 03/31/19 at 09:00 Multivitamins/ Minerals (Theragran-M) 1 tab DAILY PO Last administered on 04/03/19 08:39; Admin Dose 1 TAB; Start 03/31/19 at 09:00 Diagnostic Test (Pha) (Accu-Chek) 1 ea 02 XX Last administered on 04/02/19 02:13; Admin Dose 1 EA; Start 04/01/19 at 02:00 Insulin Aspart (Novolog Insulin Pen) NOVOLOG *MILD* ALGORITHM WITH MEALS BEDTIME SC Last administered on 04/02/19 17:28; Admin Dose 5 UNIT; Start 03/31/19 at 08:00 Miscellaneous Information 1 ea NOTE XX ; Start 03/31/19 at 09:00 Glucose (Glutose) 15 gm Q15M PRN PO DECREASED GLUCOSE; Start 03/31/19 at 09:00 Glucose (Glutose) 22.5 gm Q15M PRN PO DECREASED GLUCOSE; Start 03/31/19 at 09:00 Dextrose (D50w Syringe) 25 ml Q15M PRN IV DECREASED GLUCOSE; Start 03/31/19 at 09:00 Dextrose (D50w Syringe) 50 ml Q15M PRN IV DECREASED GLUCOSE; Start 03/31/19 at 09:00 Glucagon (Glucagen) 1 mg Q15M PRN IM DECREASED GLUCOSE; Start 03/31/19 at 09:00 Glucose (Glutose) 15 gm Q15M PRN BUCCAL DECREASED GLUCOSE; Start 03/31/19 at 09:00 Insulin Aspart (Novolog Insulin Pen) 15 unit WITH MEALS SC Last administered on 04/03/19 08:45; Admin Dose 15 UNIT; Start 03/31/19 at 18:00 Mannitol 50 ml @ 50 mls/5 min WITH DIALYSIS PRN IV DISEQUILIBRIUM SYNDROME PPX Last administered on 03/31/19 19:39; Admin Dose 50 MLS/5 MIN; Start 03/31/19 at 18:00 Hydralazine HCl (Apresoline) 10 mg Q4H PRN IV ELEVATED BLOOD PRESSURE Last administered on 03/31/19 23:07; Admin Dose 10 MG; Start 03/31/19 at 21:00 Morphine Sulfate (morphine) 0.5 mg Q4H PRN IV SEVERE PAIN LEVEL 7-10 Last admi nistered on 04/01/19 22:04; Admin Dose 0.5 MG; Start 04/01/19 at 22:00 Epoetin Constantine-epbx (Retacrit (Esrd)) 10,000 unit TuThSa@1700 SC Last administered on 04/02/19 17:21; Admin Dose 10,000 UNIT; Start 04/02/19 at 17:00 Sevelamer Carbonate (Renvela) 800 mg WITH MEALS PO Last administered on 04/03 08:39; Admin Dose 800 MG; Start 04/02/19 at 12:00 Nystatin (Nystatin Susp) 5 ml QID PO Last administered on 04/03/19 08:39; Admin Dose 5 ML; Start 04/02/19 at 17:00 Insulin Glargine (Lantus) 20 units HS SC Last administered on 04/02/19 20:54; Admin Dose 20 UNITS; Start 04/02/19 at 21:00 DONNA ROY April 03, 2019 12:12
--- NOTE | 2019-04-03 12:33 | PN ---
DATE: 04/03/2019 SUBJECTIVE: The patient is stable, no events overnight. The patient did not have dialysis yesterday . OBJECTIVE: VITAL SIGNS: Blood pressure is 157/83, pulse 74, respiration 14, temperature 98.1. HEENT: Head is normocephalic. NECK: Supple. HEART: Regular rate. LUNGS: Show diminished breath sounds at the base. ABDOMEN: Soft, nontender to palpation without rebound or guarding. EXTREMITIES: Negative for clubbing, cyanosis, no edema. DERMATOLOGIC: No rashes. MUSCULOSKELETAL: No joint effusion. NEUROLOGIC: No change in exam. MEDICATIONS: The patient's medications have been reviewed. LABORATORY DATA: Has been reviewed. ASSESSMENT AND PLAN: 1. End-stage renal disease. Patient is scheduled for dialysis today. We will dialyze 3 hours 3k ba th, calcium 2.5. 2. Uremia, improving. Continue hemodialysis. 3. Anemia. Monitor hemoglobin and hematocrit levels. Continue Epogen. 4. Mineral bone disorder. Monitor calcium and phosphorus levels. Resume phosphate binders. 5. Hypernatremia, improved. 6. Chest tightness, pressure improved. 7. Diabetes. Continue current insulin regimen. Disposition: The patient requires outpatient hemodialysis to be arranged prior to discharge. Dictated By: GERALD URIBE DO NR/NTS Conf#: [id number] DID#: [id number] CC: EDNA WHATLEY MD; DONNA ROY MD;*EndCC*
[2019-04-03] MEDS: ATORVASTATIN 40 MG TAB PO SCH (20:15)
[2019-04-03] MEDS: INSULIN GLARGINE [LANTus] (100 UNITS/ML) SYG SC SCH (20:21)
[2019-04-04] VITALS (7 sets, daily range): BP systolic 137–157; BP diastolic 65–85; PULSE 73–86; RESP 18–19
[2019-04-04] MEDS: ACCU-CHEK XX SCH (02:38)
[2019-04-04] MEDS: INSULIN ASPART [NOVOLOG] 3 ML PEN SC SCH ×7 (08:34→20:54)
[2019-04-04] MEDS: NYSTATIN SUSP 5 ML CUP PO SCH ×4 (08:35→20:46)
[2019-04-04] MEDS: SEVELAMER CARBONATE 800 MG TABLET PO SCH ×3 (08:35→18:00)
[2019-04-04] MEDS: MULTIVITAMINS/MINERALS TAB PO SCH (08:35)
[2019-04-04] MEDS: ASPIRIN (EC) 81 MG TAB PO SCH (08:35)
[2019-04-04] MEDS: CHOLECALCIFEROL 400 UNITS TAB PO SCH (08:35)
[2019-04-04] MEDS: MULTIVIT/CA CARB/B CMPLX/FA TAB PO SCH (08:35)
[2019-04-04] MEDS: AMLODIPINE 10 MG TAB PO SCH (08:36)
[2019-04-04] MEDS: METOPROLOL 25 MG TAB PO SCH ×2 (08:36→20:46)
--- NOTE | 2019-04-04 09:40 | PN ---
DATE: 04/04/2019 SUBJECTIVE: The patient is stable. No events overnight. OBJECTIVE: VITAL SIGNS: Blood pressure is 142/72, pulse 83, respirations 18, temperature 98.4. HEENT: Head is normocephalic. NECK: Supple. HEART: Regular rate. LUNGS: Show diminished breath sounds at the base. ABDOMEN: Soft, nontender to palpation without rebound or guarding. EXTREMITIES: Negative for clubbing, cyanosis, no edema. DERMATOLOGIC: No rashes. MUSCULOSKELETAL: No joint effusion. NEUROLOGIC: No change in exam. MEDICATIONS: Reviewed. LABORATORY DATA: Reviewed. ASSESSMENT AND PLAN: 1. End-stage renal disease. The patient had hemodialysis yesterday and tolerated well. Plan is for dialysis again tomorrow. 2. Uremia, improved. 3. Anemia. Continue to monitor hemoglobin and hematocrit levels. We will give Epogen as needed. 4. Mineral bone disorder, monitor calcium and phosphorus levels. Resume phosphate binders. 5. Hypernatremia, improved. 6. Diabetes. Continue current insulin regimen. Dictated By: GERALD PANDYA/NTS Conf#: [id number] DID#: [id number] CC: EDNA WHATLEY MD; DONNA ROY MD;*EndCC*
--- NOTE | 2019-04-04 11:32 | PN ---
Date/Time of Note Date/Time of Note DATE: 04/04/19 TIME: 11:32 Assessment/Plan VTE Prophylaxis Risk score (from Nsg)>0 risk: 1 SCD applied (from Nsg): Yes Pharmacological prophylaxis: NA/contraindicated Pharm contraindication: low risk/ambulating Lines/Catheters IV Catheter Type (from Nrsg): Saline Lock Urinary Cath still in place: No Assessment/Plan Hospital Course 58 yo man with history of diabetes and ESRD on HD presents after missing dialysi s for almost a month. # uremia: #ESRD -BUN and creatinine 149/4.6 respectively on admission. - Dialysis per nephrology. Dr. Fletcher following. # chest pressure: - Currently no signs of any volume overload. - Trops negative, EKG is nonischemic. This symptom has now resolved. # hypertension: - Resume amlodipine, metoprolol, PRN hydralazine. We will hold losartan at the current time until seen by nephrology # diabetes mellitus: - Resume home insulin regimen, insulin sliding scale we will check hemoglobin A1c # normocytic anemia: - Likely secondary to anemia of renal disease further management as per nephro #Oral thrush -Started nystatin swish and swallow # DVT GI prophylaxis: SCDs, no GI prophylaxis indicated Dispo: Case management arranging outpatient dialysis. Once it is set up again, patient can be discharged. Result Diagram: 04/03/19 0435 04/03/19 0435 Results 24hrs Laboratory Tests Test 04/03/19 13:50 04/03/19 17:40 04/03/19 20:14 04/04/19 02:28 Bedside Glucose 141 181 247 H 224 H Test 04/04/19 08:11 Bedside Glucose 154 Subjective 24 Hr Interval Summary Constitutional: no complaints Exam/Review of Systems Exam Vitals Vital Signs Date Temp Pulse Resp B/P (MAP) Pulse Ox O2 O2 Flow FiO2 Time Delivery Rate 04/04/19 98.4 83 19 142/72 98 07:40 (95) 04/04/19 30 02:05 04/04/19 Room Air 01:51 Intake and Output 04/03/19 04/03/19 04/04/19 1515:00 23:00 07:00 IntakeIntake Total 300 ml 400 ml 200 ml OutputOutput Total 1200 ml BalanceBalance -900 ml 400 ml 200 ml Constitutional: alert, oriented Respiratory: clear to auscultation Cardiovascular: regular rate and rhythm Gastrointestinal: soft; No distended Musculoskeletal: nl extremities to inspection Results Results 24hrs Laboratory Tests Test 04/03/19 13:50 04/03/19 17:40 04/03/19 20:14 04/04/19 02:28 Bedside Glucose 141 181 247 H 224 H Test 04/04/19 08:11 Bedside Glucose 154 Medications Medication Current Medications IV Flush (NS 3 ml) 3 ml PER PROTOCOL IV ; Start 03/31/19 at 01:00 Acetaminophen (Tylenol Tab) 650 mg Q6H PRN PO .PAIN 1-3 OR TEMP; Start 03/31/19 at 01:00 Docusate Sodium (Colace) 100 mg Q12H PRN PO .CONSTIPATION; Start 03/31/19 at 01:00 Bisacodyl (Dulcolax) 5 mg DAILY PRN PO .CONSTIPATION; Start 03/31/19 at 01:00 Amlodipine Besylate (Norvasc) 10 mg DAILY PO Last administered on 04/04/19 08:36; Admin Dose 10 MG; Start 03/31/19 at 09:00 Aspirin (Halfprin) 81 mg DAILY PO Last administered on 04/04/19 08:35; Admin Dose 81 MG; Start 03/31/19 at 09:00 Atorvastatin Calcium (Lipitor) 40 mg QHS PO Last administered on 04/03/19 20:15; Admin Dose 40 MG; Start 03/31/19 at 21:00 Cholecalciferol (Vitamin D) 400 units DAILY PO Last administered on 04/04/19 08:35; Admin Dose 400 UNITS; Start 03/31/19 at 09:00 Metoprolol Tartrate (Lopressor) 25 mg Q12 PO Last administered on 04/04/19 08:36; Admin Dose 25 MG; Start 03/31/19 at 09:00 Multivit/Ca Carb/ B Cmplx/FA/Prenat (Kae-Alin) 1 tab DAILY PO Last administered on 04/04/19 08:35; Admin Dose 1 TAB; Start 03/31/19 at 09:00 Multivitamins/ Minerals (Theragran-M) 1 tab DAILY PO Last administered on 04/04/19 08:35; Admin Dose 1 TAB; Start 03/31/19 at 09:00 Diagnostic Test (Pha) (Accu-Chek) 1 ea 02 XX Last administered on 04/04/19at 02:38; Admin Dose 1 EA; Start 04/01/19 at 02:00 Insulin Aspart (Novolog Insulin Pen) NOVOLOG *MILD* ALGORITHM WITH MEALS BEDTIME SC Last administered on 04/04/19 08:34; Admin Dose 1 UNIT; Start 03/31/19 at 08:00 Miscellaneous Information 1 ea NOTE XX ; Start 03/31/19 at 09:00 Glucose (Glutose) 15 gm Q15M PRN PO DECREASED GLUCOSE; Start 03/31/19 at 09:00 Glucose (Glutose) 22.5 gm Q15M PRN PO DECREASED GLUCOSE; Start 03/31/19 at 09:00 Dextrose (D50w Syringe) 25 ml Q15M PRN IV DECREASED GLUCOSE; Start 03/31/19 at 09:00 Dextrose (D50w Syringe) 50 ml Q15M PRN IV DECREASED GLUCOSE; Start 03/31/19 at 09:00 Glucagon (Glucagen) 1 mg Q15M PRN IM DECREASED GLUCOSE; Start 03/31/19 at 09:00 Glucose (Glutose) 15 gm Q15M PRN BUCCAL DECREASED GLUCOSE; Start 03/31/19 at 09:00 Insulin Aspart (Novolog Insulin Pen) 15 unit WITH MEALS SC Last administered on 04/04/19at 08:35; Admin Dose 15 UNIT; Start 03/31/19 at 18:00 Mannitol 50 ml @ 50 mls/5 min WITH DIALYSIS PRN IV DISEQUILIBRIUM SYNDROME PPX Last administered on 03/31/19at 19:39; Admin Dose 50 MLS/5 MIN; Start 03/31/19 at 18:00 Hydralazine HCl (Apresoline) 10 mg Q4H PRN IV ELEVATED BLOOD PRESSURE Last administered on 03/31/19at 23:07; Admin Dose 10 MG; Start 03/31/19 at 21:00 Morphine Sulfate (morphine) 0.5 mg Q4H PRN IV SEVERE PAIN LEVEL 7-10 Last administered on 04/01/19at 22:04; Admin Dose 0.5 MG; Start 04/01/19 at 22:00 Epoetin Constantine-epbx (Retacrit (Esrd)) 10,000 unit TuThSa@1700 SC Last administered on 04/02/19 17:21; Admin Dose 10,000 UNIT; Start 04/02/19 at 17:00 Sevelamer Carbonate (Renvela) 800 mg WITH MEALS PO Last administered on 04/04/19 08:35; Admin Dose 800 MG; Start 04/02/19 at 12:00 Nystatin (Nystatin Susp) 5 ml QID PO Last administered on 04/04/19 08:35; Admin Dose 5 ML; Start 04/02/19 at 17:00 Insulin Glargine (Lantus) 20 units HS SC Last administered on 04/03/19 20:21; Admin Dose 20 UNITS; Start 04/02/19 at 21:00 DONNA ROY April 04, 2019 11:32
[2019-04-04] MEDS: ATORVASTATIN 40 MG TAB PO SCH (20:46)
[2019-04-04] MEDS: INSULIN GLARGINE [LANTus] (100 UNITS/ML) SYG SC SCH (20:56)
[2019-04-05] VITALS (18 sets, daily range): BP systolic 122–163; BP diastolic 67–83; PULSE 67–84; RESP 18
[2019-04-05] MEDS: ACCU-CHEK XX SCH (02:00)
--- NOTE | 2019-04-05 08:34 | PN ---
DATE: 04/05/2019 SUBJECTIVE: The patient is stable, no events overnight. OBJECTIVE: VITAL SIGNS: Blood pressure is 155/80, pulse 74, respirations 18, temperature 98.1. HEENT: Head is normocephalic. NECK: Supple. HEART: Regular rate. LUNGS: Show diminished breath sounds at the base. ABDOMEN: Soft, nontender to palpation without rebound or guarding. EXTREMITIES: Negative for clubbing, cyanosis, no edema. DERMATOLOGIC: No rashes. MUSCULOSKELETAL: No joint effusion. NEUROLOGIC: No change in exam. MEDICATIONS: Reviewed. LABORATORY DATA: Reviewed. ASSESSMENT AND PLAN: 1. End-stage renal disease. The patient will have hemodialysis today. We will dialyze 3 hours 2k b ath, calcium 2.5. 2. Uremia, improved. 3. Anemia. Continue to monitor hemoglobin and hematocrit levels. Continue Epogen. 4. Mineral bone disorder. Monitor calcium and phosphorus levels. Continue phosphate binders. 5. Hypernatremia, improved. 6. Diabetes. Continue current insulin regimen. Per case management notes, outpatient hemodialysis is pending. Dictated By: GERALD URIBE DO NR/NTS Conf#: [id number] DID#: [id number] CC: EDNA WHATLEY MD; DONNA ROY MD;*End*
[2019-04-05] MEDS: MULTIVIT/CA CARB/B CMPLX/FA TAB PO SCH (09:10)
[2019-04-05] MEDS: AMLODIPINE 10 MG TAB PO SCH (09:10)
[2019-04-05] MEDS: MULTIVITAMINS/MINERALS TAB PO SCH (09:10)
[2019-04-05] MEDS: SEVELAMER CARBONATE 800 MG TABLET PO SCH ×3 (09:10→17:57)
[2019-04-05] MEDS: ASPIRIN (EC) 81 MG TAB PO SCH (09:10)
[2019-04-05] MEDS: CHOLECALCIFEROL 400 UNITS TAB PO SCH (09:10)
[2019-04-05] MEDS: NYSTATIN SUSP 5 ML CUP PO SCH ×3 (09:10→17:57)
[2019-04-05] MEDS: METOPROLOL 25 MG TAB PO SCH (09:11)
[2019-04-05] MEDS: INSULIN ASPART [NOVOLOG] 3 ML PEN SC SCH ×6 (09:15→18:02)
[2019-04-05] MEDS ORDERED: NYST1000 PO (12:43)
--- NOTE | 2019-04-05 12:44 | PDOCDIS ---
Discharge Instructions CONDITION [id number] Patient Condition: [id number] Good HOME CARE INSTRUCTIONS: [id number] Diet Instructions: [id number] RENAL/CARB CONTROLLED ACTIVITY: [id number] Activity Restrictions: [id number] No Restrictions FOLLOW UP/APPOINTMENTS Follow-up Plan FOLLOW UP WITH YOUR PCP IN 1-2 WEEKS AND WITH YOUR HD CENTER SCHEDULED DONNA ROY April 05, 2019 12:44
--- NOTE | 2019-04-05 14:59 | DS ---
Date/Time of Note Date/Time of Note DATE: 04/05/19 TIME: 14:55 Discharge Summary Admission/Discharge Info Admit Date/Time March 30, 2019 at 23:47 Discharge Date/Time April 05, 2019 Discharge Diagnosis 58 yo man with history of diabetes and ESRD on HD presents after missing dialysis for almost a month. #End-stage renal disease with uremia -BUN and creatinine 149/4.6 respectively on admission. - Dialysis per nephrology. Dr. Fletcher following -Patient now has a chair at a dialysis facility # chest pressure: - Currently no signs of any volume overload. - Trops negative, EKG is nonischemic. This symptom has now resolved. # hypertension: - Resume home meds # diabetes mellitus: - Resume home insulin regimen #Anemia of end-stage renal disease -Management per renal #Oral thrush -Started nystatin swish and swallow Patient Condition: Good Hospital Course Patient is a 58 yo man with history of diabetes and ESRD on HD presents after missing dialysis for almost a month. Patient presented with uremia and required dialysis. Patient had a prolonged hospitalization because he lost his dialysis chair and required a new chair to be obtained. Patient did have oral thrush and was started on nystatin. accounts receivable manager and urology arrange for dialysis chair and patient was stable for DC. On day of discharge patient vitals, labs and physical exam are stable. Home Meds Active Scripts Nystatin (Nystatin) 100,000 Unit/1 Ml Oral.susp, 5 ML PO QID for 5 Days, #1 BOTTLE Prov:DONNA ROY 04/05/19 Reported Medications Insulin Lispro (Humalog Kwikpen U-100) 100 Unit/1 Ml Insuln.pen, 45 UNIT SQ AC A, EA 03/31/19 Insulin Glargine,Hum.rec.anlog (Basaglar Kwikpen U-100) 100 Unit/1 Ml Insuln.pen, 15 UNIT SC QHS, EA 03/31/19 Multivit-Min/FA/Lycopen/Lutein (Centrum Silver Men Tablet) 1 Each Tablet, 1 EACH PO DAILY, TAB 03/31/19 Cholecalciferol* (Vitamin D*) 400 Unit Tablet, 400 UNIT PO DAILY, TAB 03/31/19 Aspirin* (Aspirin* EC) 81 Mg Tablet., 81 MG PO DAILY for 90 Days, #90 03/31/19 Losartan Potassium* (Losartan Potassium*) 100 Mg Tablet, 100 MG PO DAILY for 60 Days, #60 03/31/19 Atorvastatin* (Atorvastatin*) 40 Mg Tablet, 40 MG PO QHS for 60 Days, #60 03/31/19 Amlodipine Besylate* (Amlodipine Besylate*) 10 Mg Tablet, 10 MG PO DAILY for 60 Days, #60 03/31/19 Metoprolol Tartrate* (Lopressor*) 25 Mg Tab, 25 MG PO Q12 TK 1 T PO Q 12H 03/31/19 Multivit/Ca Carb/B Cmplx/Fa* (Kae-Alin*) 1 Tab Tab, 1 TAB PO DAILY for 30 Days, #30 03/31/19 Discontinued Reported Medications Insulin Lispro (Humalog) 100 Unit/1 Ml Cartridge, 15 UNIT SQ AC B, EA 03/31/19 Insulin Lispro (Humalog Kwikpen U-100) 100 Unit/1 Ml Insuln.pen, 15 UNIT SQ AC C, EA 03/31/19 Insulin Glargine,Hum.rec.anlog (Basaglar Kwikpen U-100) 100 Unit/1 Ml Insuln.pen, 45 UNIT SC QHS, EA 03/31/19 Follow-up Plan FOLLOW UP WITH YOUR PCP IN 1-2 WEEKS AND WITH YOUR HD CENTER SCHEDULED Primary Care Provider Arvind Jiang MD Time spent on discharge: > 30 minutes DONNA ROY April 05, 2019 14:59
[2019-04-05] MEDS ORDERED: DIAZEPAM 5 MG/ML SYG IV ONE (16:00)
[2019-04-05] MEDS ORDERED: POTASSIUM CHLORIDE (SR) 20 MEQ TAB PO STA (17:30)
[2019-04-05] MEDS: EPOETIN ALFA-EPBX (ESRD) 10,000 UNIT/ML VIAL SC SCH (17:59)
== END 2019-04-05 18:42 | disposition home or self-care (01) | DRG 682 ==
LOC: E/R 21:30 → 6WM 23:47 → MS1 04-03 03:21
PROVIDERS: ADMIT Family Medicine; ATTEND Internal Medicine
PROC: 5A1D70Z Performance of Urinary Filtration, Intermittent, Less than 6 Hours Per Day (ICD-10-PCS; 2019-03-31)
PROC: 5A1D70Z Performance of Urinary Filtration, Intermittent, Less than 6 Hours Per Day (ICD-10-PCS; principal; 2019-04-05)
DX: I12.0 Hypertensive chronic kidney disease with stage 5 chronic kidney disease or end stage renal disease (principal); N18.6 End stage renal disease; E87.2 Acidosis; E87.0 Hyperosmolality and hypernatremia; B37.0 Candidal stomatitis; E11.22 Type 2 diabetes mellitus with diabetic chronic kidney disease; E83.39 Other disorders of phosphorus metabolism; R07.89 Other chest pain; D63.1 Anemia in chronic kidney disease; Z91.15 Patient's noncompliance with renal dialysis; Z79.4 Long term (current) use of insulin; Z79.82 Long term (current) use of aspirin
CPT/HCPCS: 36415; 71045; 80048; 80053; 80061; 82306; 82550; 82553; 82962; 83036; 83735; 83880; 84100; 84443; 84484; 85025; 86704; 86709; 86803; 87081; 87340; 90935; 93005; 93306; 94660; J0360; J1815; J1940; J2150; J2270; J3360; Q5105

== ENCOUNTER 2019-07-23 22:58 | Emergency (ER) | payer MEDICARE, OTHER ==
[~2019-07-23] VITALS: Ht 167.6 cm; Wt 78.2 kg
[~2019-07-23 22:58] MED LIST: AMLO-147 PO; ASPI-817 PO; ATOR40TA68 PO; CHOL400T10 PO; INSU100I12 SQ; INSU100I33 SC; LOSA100T15 PO; METO-448 PO; MULT-896 PO; NEPH PO; NYST1000 PO
[2019-07-23 23:06] VITALS: Ht 167.6 cm; Wt 78.2 kg
[2019-07-24] MEDS ORDERED: ACETAMINOPHEN 325 MG TAB PO PRN (03:00)
[2019-07-24] MEDS ORDERED: ONDANSETRON 4 MG INJ IV PRN (03:00)
[2019-07-24] MEDS ORDERED: INSULIN LISPRO 45 UNIT SQ SCH (03:30)
[2019-07-24] MEDS ORDERED: BUMETANIDE 1 MG INJ IV ONE (04:00)
[2019-07-24] MEDS ORDERED: INSULIN ASPART [NOVOLOG] 3 ML PEN SC SCH (07:00)
[2019-07-24] MEDS ORDERED: ASPIRIN (EC) 81 MG TAB PO SCH (09:00)
[2019-07-24] MEDS ORDERED: AMLODIPINE 10 MG TAB PO SCH (09:00)
[2019-07-24] MEDS ORDERED: MULTIVIT/CA CARB/B CMPLX/FA TAB PO SCH (09:00)
[2019-07-24] MEDS ORDERED: MULTIVITAMINS/MINERALS TAB PO SCH (09:00)
[2019-07-24] MEDS ORDERED: DOCUSATE SODIUM 100 MG CAP PO SCH (09:00)
[2019-07-24] MEDS ORDERED: METOPROLOL 25 MG TAB PO SCH (09:00)
[2019-07-24] MEDS ORDERED: CHOLECALCIFEROL 400 UNITS TAB PO SCH (09:00)
[2019-07-24] MEDS: INSULIN ASPART [NOVOLOG] 3 ML PEN SC SCH ×2 (09:20→12:50)
[2019-07-24] MEDS ORDERED: DEXTROSE 50% 50 ML SYRINGE IV PRN ×2 (09:30)
[2019-07-24] MEDS ORDERED: GLUCAGON 1 MG INJ IM PRN (09:30)
[2019-07-24] MEDS ORDERED: GLUCOSE GEL 15 GRAM TUBE PO PRN ×2 (09:30)
[2019-07-24] MEDS ORDERED: GLUCOSE GEL 15 GRAM TUBE BUCCAL PRN (09:30)
[2019-07-24 14:00] VITALS: BP 151/83; PULSE 61; RESP 20
[2019-07-24] MEDS ORDERED: INSULIN GLARGINE [LANTus] (100 UNITS/ML) SYG SC SCH (20:00)
[2019-07-24] MEDS ORDERED: ATORVASTATIN 40 MG TAB PO SCH (21:00)
[2019-07-25] MEDS ORDERED: ACCU-CHEK XX SCH (02:00)
== END 2019-07-24 14:48 | disposition home or self-care (01) ==
LOC: E/R 22:58 → SUATTDRO 07-24 08:22 → EDBEDREQ 07-24 11:27 → E/R 07-24 14:48 → CANBEDREQ 07-25 21:00
PROVIDERS: ATTEND Internal Medicine
DX: I13.2 Hypertensive heart and chronic kidney disease with heart failure and with stage 5 chronic kidney disease, or end stage renal disease (principal); I50.9 Heart failure, unspecified; N18.6 End stage renal disease; Z79.4 Long term (current) use of insulin; Z79.82 Long term (current) use of aspirin
CPT/HCPCS: 36415; 71045; 74018; 76700; 80048; 80053; 81001; 82550; 82553; 82962; 83036; 83735; 83880; 84443; 84484; 85025; 87086; 93005; 96372; 96374; J1815; Z7502; Z7610